=== PATIENT | female | born 1955 | race Caucasian/White ===

== ENCOUNTER 2017-06-07 13:51 | Emergency (ER) | payer OTHER ==
[2017-06-07 14:00] VITALS: BP 131/66; PULSE 85; TEMP 97.7; BMI 25.0
[2017-06-07 18:19] LABS: URINE APPEARANCE CLEAR; URINE BILIRUBIN NEGATIVE (NEGATIVE); URINE BLOOD NEGATIVE (NEGATIVE); URINE COLOR LTYELLOW; URINE GLUCOSE (UA) NEGATIVE (NEGATIVE); URINE KETONE TRACE (NEGATIVE); URINE LEUK ESTERASE NEGATIVE (NEGATIVE); URINE NITRITE NEGATIVE (NEGATIVE); URINE PROTEIN NEGATIVE (NEGATIVE); URINE UROBILINOGEN NEGATIVE mg/dL (0.2-1.0)
--- NOTE | 2017-06-07 20:56 | PDOC ---
History of Present Illness - General Chief Complaint: Urinary Problem Stated Complaint: Urinary Problem Time Seen by Provider: 06/07/17 20:56 Past History - Past Medical History Allergies/Adverse Reactions: Allergies Allergy/AdvReac Type Severity Reaction Status Date / Time amoxicillin Allergy Severe Hives Verified 06/07/17 14:00 NSAIDS (Non-Steroidal Allergy Severe Hives Verified 06/07/17 14:00 Anti-Inflamma shellfish derived Allergy Severe Hives Verified 06/07/17 14:00 Sulfa (Sulfonamide Allergy Severe Hives Verified 06/07/17 14:00 Antibiotics) yeast, dried [yeast] Allergy Severe Hives Verified 06/07/17 14:00 mold Allergy Severe Hives Uncoded 06/07/17 14:00 Home Medications: Ambulatory Orders Ascorbic Acid [Vitamin C] 500 mg PO DAILY tablet 10/12/14 Calcium Carbonate [Calcium] 500 mg PO DAILY tablet 10/12/14 Cholecalciferol (Vitamin D3) [Vitamin D3] 2,000 unit PO DAILY capsule 10/12/14 Cetirizine HCl [Zyrtec -] 10 mg PO HS 12/04/14 Alprazolam [Xanax] 0.5 mg PO HS #15 tablet 06/13/16 Zolpidem Tartrate 5 mg PO HS tablet 06/13/16 Escitalopram Oxalate [Lexapro] 10 mg PO 1 AND 1/2 DAILY tablet 08/17/16 Anemia: No Asthma: No (AFTER STOPPING SMOKING OVER 10 YEARS AGO) Cancer: No Cardiac Disorders: No CVA: No COPD: No CHF: No Dementia: No Diabetes: No GI Disorders: No Disorders: No HTN: No Hypercholesterolemia: No Liver Disease: No Psychiatric Problems: Yes (Severe depression) Seizures: No Thyroid Disease: No - Surgical History Abdominal Surgery: No () Appendectomy: No Cardiac Surgery: No Cholecystectomy: No Lung Surgery: No Neurologic Surgery: No Orthopedic Surgery: No - Suicide/Smoking/Psychosocial Hx Smoking History: Never smoked Have you smoked in the past 12 months: No If you are a former smoker, when did you quit?: 10 YRS AGO Information on smoking cessation initiated: No Hx Alcohol Use: No Drug/Substance Use Hx: No Substance Use Type: None Hx Substance Use Treatment: No *Physical Exam - Vital Signs Last Vital Signs Temp Pulse Resp BP Pulse Ox 97.7 F 85 18 131/66 98 06/07/17 13:56 06/07/17 13:56 06/07/17 13:56 06/07/17 13:56 06/07/17 13:56 ED Treatment Course - ADDITIONAL ORDERS Additional order review: Laboratory Results 06/07/17 18:00 Urine Color Ltyellow Urine Appearance Clear Urine pH 7.0 Ur Specific [place] 1.008 Urine Protein Negative Urine Glucose (UA) Negative Urine Ketones Trace H Urine Blood Negative Urine Nitrite Negative Urine Bilirubin Negative Urine Urobilinogen Negative Ur Leukocyte Esterase Negative *DC/Admit/Observation/Transfer - Referrals Referrals: Alec Klein MD [Primary Care Provider] - - Patient Instructions - Post Discharge Activity
--- NOTE | 2017-06-07 21:04 | PDOC ---
Attending Attestation - HPI HPI: 06/07/17 22:04 The patient is a 61 year old female with a significant PMH of urinary retention , psychogenic dysplasia, and suicidality who presents to the emergency department with a lack of sensation during urination beginning earlier today. The patient denies any changes in urinary frequency or incontinence. Allergies: Amoxicillin, NSAIDS, Sulfonamide antibiotics. PCP: Dr. Klein <Julio Dennis - Last Filed: 06/07/17 22:04> - Resident Resident Name: Jm Whyte - ED Attending Attestation I have performed the following: I have examined & evaluated the patient, The case was reviewed & discussed with the resident, I agree w/resident's findings & plan, Exceptions are as noted - Physicial Exam PE: 06/08/17 05:25 Physical Exam General Appearance: Yes: Appropriately Dressed. No: Apparent Distress, Intoxicated HEENT: positive: EOMI, YULIYA, Normal ENT Inspection, Normal Voice, TMs Normal, Pharynx Normal. negative: Pale Conjunctivae, Photophobia, Scleral Icterus (R), Scleral Icterus (L) Neck: positive: Trachea midline, Normal Thyroid, Supple. negative: Tender, Rigid, Carotid bruit, Stridor, Lymphadenopathy (R), Lymphadenopathy (L), Thyromegaly Respiratory/Chest: positive: Lungs Clear, Normal Breath Sounds. negative: Chest Tender, Respiratory Distress, Accessory Muscle Use, Labored Respiration, RES, Crackles, Rales, Rhonchi, Stridor, Wheezing, Dullness Cardiovascular: positive: Regular Rhythm, Regular Rate, S1, S2. negative: Edema , JVD, Murmur, Bradycardia, Tachycardia Vascular Pulses: Dorsalis-Pedis (R): 2+, Doralis-Pedis (L): 2+ Gastrointestinal/Abdominal: positive: Normal Bowel Sounds, Flat, Soft. negative : Tender, Organomegaly, Pulsatile Mass, Increased Bowel Sounds, Decreased BS, Distended, Guarding, Rebound, Hernia, Hepatomegaly, Spleenomegaly Lymphatic: negative: Adenopathy, Tenderness Musculoskeletal: positive: Normal Inspection. negative: CVA Tenderness, Decreased Range of Motion Extremity: positive: Normal Capillary Refill, Normal Inspection, Normal Range of Motion, Pelvis Stable. negative: Tender, Pedal Edema, Swelling, Erythema Integumentary: positive: Normal Color, Dry, Warm. negative: Cyanotic, Erythema , Jaundice, Rash Neurologic: positive: phone representative II-XII NML intact, Fully Oriented, Alert, Normal Mood/ Affect, Motor Strength 5/5. negative: EOM Palsy, Facial Droop, Sensory Deficit - Medical Decision Making 06/08/17 05:26 Pt treated and released <Christopher Syed - Last Filed: 06/08/17 05:26>
--- NOTE | 2017-06-07 21:12 | PDOC ---
History of Present Illness - General Chief Complaint: Urinary Problem Stated Complaint: Urinary Problem Time Seen by Provider: 06/07/17 20:56 History Source: Patient Exam Limitations: No Limitations - History of Present Illness Initial Comments: 06/07/17 21:06 Patient 61F with history of depression s/p hospitalization for suicidality in march at [facility] here today complaining of the loss of sensation during urination. Patient states that she is going to the bathroom without difficulty, but has not been able to feel herself urinate starting today. She states that she has an ultrasound scheduled for by her PCP Dr Klein. Patient denies fevers, chills, nausea, vomiting, and abdominal pain. She denies incontinence and back pain. Patient reports no difficulty with ambulation. Past History - Past Medical History Allergies/Adverse Reactions: Allergies Allergy/AdvReac Type Severity Reaction Status Date / Time amoxicillin Allergy Severe Hives Verified 06/07/17 14:00 NSAIDS (Non-Steroidal Allergy Severe Hives Verified 06/07/17 14:00 Anti-Inflamma shellfish derived Allergy Severe Hives Verified 06/07/17 14:00 Sulfa (Sulfonamide Allergy Severe Hives Verified 06/07/17 14:00 Antibiotics) yeast, dried [yeast] Allergy Severe Hives Verified 06/07/17 14:00 mold Allergy Severe Hives Uncoded 06/07/17 14:00 Home Medications: Ambulatory Orders Ascorbic Acid [Vitamin C] 500 mg PO DAILY tablet 10/12/14 Calcium Carbonate [Calcium] 500 mg PO DAILY tablet 10/12/14 Cholecalciferol (Vitamin D3) [Vitamin D3] 2,000 unit PO DAILY capsule 10/12/14 Cetirizine HCl [Zyrtec -] 10 mg PO HS 12/04/14 Alprazolam [Xanax] 0.5 mg PO HS #15 tablet 06/13/16 Zolpidem Tartrate 5 mg PO HS tablet 06/13/16 Escitalopram Oxalate [Lexapro] 10 mg PO 1 AND 1/2 DAILY tablet 08/17/16 Anemia: No Asthma: No (AFTER STOPPING SMOKING OVER 10 YEARS AGO) Cancer: No Cardiac Disorders: No CVA: No COPD: No CHF: No Dementia: No Diabetes: No GI Disorders: No Disorders: No HTN: No Hypercholesterolemia: No Liver Disease: No Psychiatric Problems: Yes (Severe depression) Seizures: No Thyroid Disease: No - Surgical History Abdominal Surgery: No () Appendectomy: No Cardiac Surgery: No Cholecystectomy: No Lung Surgery: No Neurologic Surgery: No Orthopedic Surgery: No - Suicide/Smoking/Psychosocial Hx Smoking History: Never smoked Have you smoked in the past 12 months: No If you are a former smoker, when did you quit?: 10 YRS AGO Information on smoking cessation initiated: No Hx Alcohol Use: No Drug/Substance Use Hx: No Substance Use Type: None Hx Substance Use Treatment: No Review of Systems - Review of Systems Comments:: 06/07/17 21:09 GENERAL/CONSTITUTIONAL: No fever or chills. No weakness. HEAD, EYES, EARS, NOSE AND THROAT: No change in vision. No sore throat. CARDIOVASCULAR: No chest pain or shortness of breath RESPIRATORY: No cough, wheezing, or hemoptysis. GASTROINTESTINAL:Positive for intermittent nasuea. Negative for vomiting, diarrhea or constipation. GENITOURINARY: No dysuria, frequency. MUSCULOSKELETAL: No joint or muscle swelling or pain. No neck or back pain. SKIN: No rash NEUROLOGIC: Positive for headache. Negative for vertigo, loss of consciousness, or change in strength/sensation. ENDOCRINE: No increased thirst. No abnormal weight change ALLERGIC/IMMUNOLOGIC: No hives or skin allergy. *Physical Exam - Vital Signs Last Vital Signs Temp Pulse Resp BP Pulse Ox 97.7 F 85 18 131/66 98 06/07/17 13:56 06/07/17 13:56 06/07/17 13:56 06/07/17 13:56 06/07/17 13:56 - Physical Exam Comments: 06/07/17 21:12 GENERAL: Awake, alert, and fully oriented, in no acute distress PSYCH: Anxious, denies SI/HI HEAD: No signs of trauma, normocephalic, atraumatic EYES: PERRLA, EOMI, sclera anicteric, conjunctiva clear ENT: Auricles normal inspection, hearing grossly normal, nares patent, oropharynx clear without exudates. Moist mucosa NECK: Normal ROM, supple, no lymphadenopathy, JVD, or masses LUNGS: No distress, speaks full sentences, clear to auscultation bilaterally HEART: Regular rate and rhythm, normal S1 and S2, no murmurs, rubs or gallops, peripheral pulses normal and equal bilaterally. ABDOMEN: Soft, nontender, normoactive bowel sounds. No guarding, no rebound. No masses EXTREMITIES: Normal inspection, Normal range of motion, no edema. No clubbing or cyanosis. NEUROLOGICAL: Cranial nerves II through XII grossly intact. Normal speech, normal gait, no focal sensorimotor deficits SKIN: Warm, Dry, normal turgor, no rashes or lesions noted. ED Treatment Course - ADDITIONAL ORDERS Additional order review: Laboratory Results 06/07/17 18:00 Urine Color Ltyellow Urine Appearance Clear Urine pH 7.0 Ur Specific [place] 1.008 Urine Protein Negative Urine Glucose (UA) Negative Urine Ketones Trace H Urine Blood Negative Urine Nitrite Negative Urine Bilirubin Negative Urine Urobilinogen Negative Ur Leukocyte Esterase Negative Medical Decision Making - Medical Decision Making 06/07/17 21:12 61F with history of depression here today complaining of loss of sensation with urination. Patient is urinating in the department, is not retaining. Is currently getting outpatient workup that is appropriate. Labs done two days ago show normal kidney function with sodium of 127. Patient reports drinking large amounts of water. Advised by PCP and myself to cut water intake. Patient is concerned that she will stop urinating if she doesn't drink large amounts of water. UA done in triage is negative. Will discharge with return precautions. *DC/Admit/Observation/Transfer Diagnosis at time of Disposition: Urinary symptom or sign - Discharge Dispostion Disposition: HOME Condition at time of disposition: Good Admit: No - Referrals Referrals: Alec Klein MD [Primary Care Provider] - - Patient Instructions Additional Instructions: Please continue following with Dr Klein in regards to your condition. Please return if you have any new, worsening, or concerning symptoms, especially if you lose the ability to urinate. - Post Discharge Activity
== END 2017-06-07 21:22 | disposition home or self-care (01) ==
LOC: JER 13:51
DX: R39.198 Other difficulties with micturition (principal)
CPT/HCPCS: 81003; 87086; 99281-25

== ENCOUNTER 2022-03-31 10:24 | Emergency (ER) | payer BC ==
[2022-03-31 10:37] VITALS: BP 151/78; PULSE 72; RESP 20; TEMP 98.3; BMI 27.3
[2022-03-31] MEDS ORDERED: ACETAMINOPHEN 325 MG TABLET (FP) PO ONE (11:00)
[2022-03-31] MEDS ORDERED: ACETAMINOPHEN 325 MG TABLET (FP) ONE (11:15)
== END 2022-03-31 11:58 | disposition home or self-care (01) ==
LOC: FER 10:24
DX: S93.402A Sprain of unspecified ligament of left ankle, initial encounter (principal); X50.0XXA Overexertion from strenuous movement or load, initial encounter; Y93.K1 Activity, walking an animal
CPT/HCPCS: 73610-TC-LT-FY; 99283-25